=== PATIENT | female | born 1950 | race Caucasian/White ===

== ENCOUNTER → 2017-06-26 | Outpatient (CLI) | payer BC ==
[~2017-06-26] MED LIST: GADAVIST IV PRN
--- NOTE | 2017-06-26 17:18 | DIAGNOSTIC IMAGING REPORT ---
MRI OF THE ORBITS COMBO CLINICAL HISTORY: Left-sided visual problems. Abduction abnormality. COMPARISON STUDY: No priors. TECHNIQUE: MRI of the bony orbits is performed utilizing various T1 and T2-weighted sequences in the axial, sagittal, and coronal planes. Contrast-enhanced sequences are acquired following the IV administration of 9 mL of Gadavist. FINDINGS: The orbital contents are normal in appearance. The globes appear intact and the lenses are normally positioned. The extraocular muscles are normal and symmetric. The optic nerves are normal as visualized. There is no evidence of intra- or extraconal mass. Trace mucosal thickening is seen within the ethmoid maxillary sinuses. The remaining visualized paranasal sinuses are clear. Normal flow voids are maintained at the skull base. The brain parenchyma is normal as visualized. The pituitary and sella are normal as imaged. The visualized calvarium appears intact. IMPRESSION: Unremarkable MRI assessment of the orbits. Dictated: 06/26/2017 5:06 PM Transcribed: 06/26/2017 5:18 PM [email or web address] Electronically signed by: Arslan Jacques M.D. 06/26/2017 5:18 PM Dictated Date/Time: 06/26/2017 5:06 PM
== END | disposition home or self-care (01) ==
LOC: C.MRI 15:34
PROVIDERS: ATTEND Ophthalmology
DX: H51.8 Other specified disorders of binocular movement (principal)